=== PATIENT | male | born 1960 | race Caucasian/White ===

== ENCOUNTER 2022-05-12 13:26 | Outpatient (CLI) | payer OTHER, SELFPAY ==
[2022-05-12 14:40] LABS: INR 3.73 (0.91-1.10); Prothrombin Time 37.1 Seconds
== END 2022-05-12 13:27 | disposition home or self-care (01) ==
LOC: NFLDREF 13:27
PROVIDERS: PCP Family Medicine; Visit Provider Family Medicine
DX: I51.3 Intracardiac thrombosis, not elsewhere classified (principal); Z51.81 Encounter for therapeutic drug level monitoring; Z79.01 Long term (current) use of anticoagulants
CPT/HCPCS: 85610

== ENCOUNTER 2022-12-20 13:10 | Outpatient (CLI) | payer OTHER, SELFPAY ==
[2022-12-20 14:36] LABS: Albumin* 4.1 g/dL (3.3-5.0)
[2022-12-20 14:37] LABS: Chloride* 105 mmol/L (96-114); Potassium* 4.5 mmol/L (3.6-5.1); Sodium* 140 mmol/L (135-149)
[2022-12-20 14:39] LABS: Alkaline Phosphatase* 51 U/L (40-150); Aspartate Amino Transferase* 24 U/L (12-35); Bilirubin Total* 1.1 mg/dL (0.1-1.5); Blood Urea Nitrogen* 15 mg/dL (7-30); Carbon Dioxide* 29 mmol/L (20-32); Cholesterol* 171 mg/dL (90-199); Creatinine* 1.2 mg/dL (0.5-1.5); Estimated Glomerular Filt Rate 68 ml/min; Total Protein* 6.7 g/dL (6.0-8.3)
[2022-12-20 14:40] LABS: Alanine Aminotransferase* 20 U/L (4-50); Calcium* 9.5 mg/dL (8.4-10.6); Glucose* 116 mg/dL (60-115); HDL Cholesterol* 57 mg/dL (>=40); LDL Cholesterol Calculated 88 mg/dL (<100); Triglycerides* 129 mg/dL (40-149)
[2022-12-20 15:09] LABS: PSA Screen* 1.46 ng/mL (0.10-4.00)
== END 2022-12-20 13:11 | disposition home or self-care (01) ==
LOC: NFLDREF 13:10
PROVIDERS: PCP Family Medicine; Visit Provider Family Medicine
DX: Z00.00 Encounter for general adult medical examination without abnormal findings (principal); I42.9 Cardiomyopathy, unspecified; I10 Essential (primary) hypertension; Z79.01 Long term (current) use of anticoagulants; Z12.5 Encounter for screening for malignant neoplasm of prostate; Z13.6 Encounter for screening for cardiovascular disorders
CPT/HCPCS: 80053; 80061; 84153

== ENCOUNTER 2023-03-16 13:16 | Outpatient (CLI) | payer OTHER, SELFPAY | END 2023-03-16 13:17 | disposition home or self-care (01) | LOC: NFLDREF 03-18 09:25 | PROVIDERS: PCP Family Medicine; Referring Provider Family Medicine; Visit Provider Family Medicine | DX: Z79.01 Long term (current) use of anticoagulants (principal); I48.91 Unspecified atrial fibrillation; Z86.711 Personal history of pulmonary embolism | CPT/HCPCS: 85610 ==

== ENCOUNTER 2023-06-22 13:07 | Outpatient (CLI) | payer OTHER, SELFPAY | END 2023-06-22 13:08 | disposition home or self-care (01) | LOC: NFLDREF 06-23 12:41 | PROVIDERS: PCP Family Medicine; Referring Provider Family Medicine; Visit Provider Family Medicine | DX: Z79.01 Long term (current) use of anticoagulants (principal) | CPT/HCPCS: 85610 ==

== ENCOUNTER 2023-12-26 07:59 | Outpatient (CLI) | payer OTHER, SELFPAY ==
--- OUTSIDE RECORDS SUMMARY | 2023-12-26 11:59 | XMS_ITS | Encounter Summary ---
Author Name Unknown Organization [facility] Address [address] [place] [address] Care Team Providers Care Registered Travel Nurse Name Role Phone Unavailable Primary Care Provider Unavailabl e Reason for Visit * Reason Comments Med Refill Encounter Details Date Type Department Care Team (Late st Contact Info) Description 08/18/2023 Refill Department of Cardiovascular Diseases in [place], [place] [address] [address] Migue Montaño, DIVORCE MEDIATOR, C.N.P. [address] [address] Med Refill Social History Tobacco Use Types Packs/Day Years Used Date Smoking Tobacco: Never Smokeless Tobacco: Never Alcohol Use Standard Drinks/Week Comments Yes 0 (1 standard drink = 0.6 oz pur e alcohol) 1 drink per month Social Connection and Isolat ion Panel [NHANES] Answer Date Recorded In a typical week, how many times do you talk on the phone with family, friends, or neighbors? Once a week 06/18/2022 How often do you get togethe r with friends or relatives? More than three times a week 06/18/2022 How often do you attend chur ch or restoration services? 1 to 4 times per year 06/18/2022 Do you belong to any clubs o r organizations such as yazidi groups, unions, fraternal or athletic groups, or school groups? Patient declined 06/18/2022 How often do you attend meet ings of the clubs or organizations you belong to? Patient declined 06/18/2022 Are you , , di vorced, , never , or living with a partner? Never 06/18/2022 AUDIT-C Answer Date Recorded Q1: How often do you have a drink containing alc ohol? Monthly or less 06/18/2022 Q2: How many drinks containi ng alcohol do you have on a typical day when you are drinking? 1 or 2 06/18/2022 Q3: How often do you have si x or more drinks on one occasion? Never 06/18/2022 Overall Financial Resource Strain (CARDIA) Answe r Date Recorded How hard is it for you to pa y for the very basics like food, housing, medical care, and heating? Not hard at all 07/02/2021 [facility] [place] of Occupat ional Health - Occupational Stress Questionnaire Answer Date Recorded Do you feel stress - tense, restless, nervous, or anxious, or unable to sleep at night because your mind is troubled all the time - these days? Not at all 07/02/2021 Exercise Vital Sign Answer Date Recorde d On average, how many days pe r week do you engage in moderate to strenuous exercise (like a brisk walk)? 6 days 06/18/2022 On average, how many minutes do you engage in exercise at this level? 50 min 06/18/2022 Hunger Vital Sign Answer Date Recorded Within the past 12 months, y ou worried that your food would run out before you got the money to buy more. Never true 07/02/20 21 Within the past 12 months, t he food you bought just didn't last and you didn't have money to get more. Never true 07/02/2021 PRAPARE - Transportation Answer Date Re corded In the past 12 months, has l ack of transportation kept you from medical appointments or from getting medications? No 03/2022 In the past 12 months, has l ack of transportation kept you from meetings, work, or from getting things needed for daily living? No 06/18/2022 Housing Stability Vital Sign Answer Shlomo e Recorded In the last 12 months, was t here a time when you were not able to pay the mortgage or rent on time? No 06/18/2022 In the last 12 months, how many places have you lived? 1 06/18/2022 In the last 12 months, was t here a time when you did not have a steady place to sleep or slept in a usp (including now)? No 06/18/2022 Nutrition Answer Date Recorded Nutrition: EVOO Fat Source Yes 06/18 On average, how many serving s of fruits and vegetables do you eat per day (serving size is equal to 1 cup or approximately the size of a tennis ball)? 2-3 06/18/2022 Dental Answer Date Recorded Dental: Regular Dentist Yes 07/02/20 21 Employment Answer Date Recorded Employment status Retired 06/18/2022 Education Answer Date Recorded What is the highest level of school you have completed or the highest degree you have received? Professional school degree (e.g., MD, DDS, DVM, VESTA) 05/21/2019 Sex and Gender Information Value Date Recorded Sex Assigned at Male 08/26/2023 9:39 AM CDT Gender Identity Male 07/30/2022 7:04 AM CDT Sexual Orientation Choose not to disclose 2021 7:04 AM CDT documented as of this encounter Plan of Treatment Not on file documented as of this encounter Visit Diagnoses Not on filedocumented in this encounter
--- OUTSIDE RECORDS SUMMARY | 2023-12-26 11:59 | XMS_ITS | Encounter Summary ---
Author Name Unknown Organization [facility] Address [address] [place] [address] Care Team Providers Care Stereo Map Plotter Operator Name Role Phone Unavailable Primary Care Provider Unavailabl e Reason for Visit * Reason Comments Med Refill Encounter Details Date Type Department Care Team (Late st Contact Info) Description 11/21/2023 Refill Department of Cardiovascular Diseases in [place], [place] [address] [address] Migue Montaño, SAP ARCHITECT, C.N.P. [address] [address] Med Refill Social History Tobacco [...] often do you attend chur ch or gnosticism services? 1 to 4 times per year 06/18/2022 Do you belong to any clubs o r organizations such as yazdanism groups, unions, fraternal or athletic groups, or [...] and heating? Not hard at all 07/02/2021 [facility] [place] of Occupat ional Health - Occupational Stress [...] you got the money to buy more. Patient declined Within the past 12 months, t he food you bought just didn't last and you didn't have money to get more. Patient declined PRAPARE - Transportation Answer Date Re corded In the past 12 months, has l ack of transportation kept you from medical appointments or from getting medications? Patient declined 08/26/2023 In the past 12 months, has l ack of transportation kept you from meetings, work, or from getting things needed for daily living? Patient declined 08/26/2023 Nutrition Answer Date Recorded Nutrition: EVOO Fat Source Yes 06/18 On average, how many serving s of fruits and vegetables do you eat per day (serving size is equal to 1 cup or approximately the size of a tennis ball)? 2-3 06/18/2022 Dental Answer Date Recorded Dental: Regular Dentist Yes 07/02/20 21 Employment Answer Date Recorded Employment status Retired 06/18/2022 Housing Stability Answer Date Recorded What is your living situation today? Decline 08/26/2023 Education Answer Date Recorded What is the [...]
--- OUTSIDE RECORDS SUMMARY | 2023-12-26 11:59 | XMS_ITS | Encounter Summary ---
Author Name Unknown Organization [facility] Address [address] [place] [address] Care Team Providers Care Breading Machine Tender Name Role Phone Unavailable Primary Care Provider Unavailabl e Reason for Referral * Outpatient (Routine) - Authorized Specialty Diagnoses / Procedures Referred By Carolyn ureña Referred To Contact Cardiovascular Disease Migue Montaño APRN, C.N.P. [address] [place] [address] [facility] Region Referral ID Status Reason Start Date Expiration Date V isits Requested Visits Authorized [id number] Authorized 08/26/2023 08/25/2026 1 1 Reason for Visit * Reason Comments Follow-up * Outpatient (Routine) - Closed Specialty Diagnoses / Procedures Referred By Carolyn ureña Referred To Contact Cardiovascular Disease Migue Montaño APRN, C.N.P. [address], [place] [address] [facility] Region Referral ID Status Reason Start Date Expiration Date Visits Re quested Visits Authorized [id number] Closed 08/24/2022 08/23/2025 1 1 Encounter Details Date Type Department Care Team (Latest Contact Info) Description 08/26/2023 10:15 AM CDT Office Visit Department of Cardiovascular Diseases in [place], [place] [address] [place] [address] Migue Montaño APRN, C.N.P. [address], [place] [address] Atrial Fibrillation Permanent (HCC) (Primary Dx); Anticoagulant Therapy; Cardiomyopathy Dilated (HCC); Hypertensive Heart Disease With Heart Failure (HCC) Social History Tobacco Use Types Packs/Day Years Used Date Smoking Tobacco: Never Smokeless Tobacco: Never Tobacco Cessation:Counseling Given: Not Answered Alcohol Use Standard Drinks/Week Comments Yes 0 [...] 06/18/2022 How often do you attend chur or rastafari services? 1 to 4 times per year 06/18/2022 Do you belong to any clubs o r organizations such as spiritism groups, unions, fraBabble or athletic groups, or school groups? Patient [...] and heating? Not hard at all 07/02/2021 [facility] [place] of Occupat ional Health - Occupational Stress [...] Date Recorded Dental: Regular Dentist Yes 07/02/20 Employment Answer Date Recorded Employment status Retired [...] AM CDT documented as of this encounter Last Filed Vital Signs Vital Sign Reading Time Taken Comments Blood Pressure 135/88 08/26/2023 9:58 AM CDT Pulse 81 08/26/2023 9:58 AM CDT Temperature - - Respiratory Rate - - Oxygen Saturation - - Inhaled Oxygen Concentration - - Weight 111 kg (244 lb 14.9 oz) 08/26/2023 9:58 A M CDT Height - - Body Mass Index 31.77 05/23/2019 9:14 AM CDT documented in this encounter Progress Notes * Migue Montaño, ARACELI, C.N.P. - 08/26/2023 10:15 AM CDT SUBJECTIVE CHIEF COMPLAINT/REASON FOR VISIT Atrial fibrillation, cardiomyopathy HISTORY OF PRESENT ILLNESS Phani Purvis is seen today for an annual follow-up in the setting of atrial fibrillation and nonischemic cardiomyopathy. He has a personal history of heart failure with reduced ejection fraction and no coronary artery disease identified on a coronary angiogram May of 2018. He has been medically managed for his heart failure and is currently on 50 mg of carvedilol twice daily along with 50 mg of losartan, 20 mg of Lasix, and warfarin anticoagulation. He had been intolerant to spironolactone secondary to hyperkalemia in the past. Last year, he developed atrial fibrillation and underwent a successful cardioversion in July. When I saw him in follow-up in August he had been doing well post cardioversion and had noticed somewhat of an improvement in some exertional fatigue that has been present a few months prior to his follow-up visit with me prior to cardioversion. Today, he tells me that in December 2022 he was evaluated by his primary care physician and was felt to be in atrial fibrillation at the time of that appointment. Phani did not want to pursue additional rhythm management so rate control was continued. Today, Phani tells me that he continues to kevin rate control strategy and does not want to pursue additional evaluation and management (see below). He feels well and reports no new or concerning symptoms over the last year. He feels that he tolerates his medications well without side effects. He is not had any new problems with chest pains, exertional dyspnea, palpitations, PND, orthopnea, new weight gain, or new lower extremity edema. CURRENT MEDICATIONS Current Outpatient Medications: carvediloL (COREG) 25 mg tablet, TAKE 2 TABLETS (50 MG TOTAL) BY MOUTH 2 (TWO) TIMES A DAY WITH MEALS., Disp: 360 tablet, Rfl: 3 furosemide (LASIX) 20 mg tablet, Take 20 mg by mouth daily., Disp: , Rfl: losartan (COZAAR) 50 mg tablet, Take 1 tablet (50 mg total) by mouth daily., Disp: 90 tablet, Rfl: 3 warfarin (COUMADIN) 7.5 mg tablet, Take 7.5 mg Tuesday, 5 mg all other days., Disp: , Rfl: ALLERGIES Allergies Allergen Reactions Ragweed Pollen Cough MEDICAL HISTORY 1. Heart failure with reduced ejection fraction - Nonischemic cardiomyopathy. - Prior alcohol use; no illicit drug use; normal thyroid function test. - No CAD on coronary angiogram 05/29/2018 at [facility]. - CMR 05/2018 nonischemic cardiomyopathy; LVEF 24%, RVEF 33%; prominent increase in extracellular volume; mild mid myocardial gadolinium uptake in the anterobasilar septum - nonischemic with mild replacement fibrosis. 2. Left ventricular thrombus, detected by CMR 05/2018. 3. Hypertension. 4. Nonsustained VT on telemetry 05/2018. 5. Pulmonary embolization 05/2018. 6. Long-term anticoagulation, warfarin. Previously on Eliquis. - managed by primary care provider and anticoagulation clinic in [place]. 7. History of prior alcohol use. Quit heavy drinking approximately 2 years ago. 8. Borderline dilatation of the aorta. - 40 mm 12/2018. 9. Atrial fibrillation. Cardioversion July 2022. Reoccurrence of AFib by December 2022. Desires rate control. SH: The patient previously reported preference for last invasive therapy and DNR code status based on his primary provider's note from 06/07/2018. OBJECTIVE VITAL SIGNS BP 135/88 (BP Location: Right arm, Patient Position: Sitting, Cuff Size: Regular) Pulse 81 Wt 111 kg BMI 31.77 kg/m?? PHYSICAL EXAMINATION General: Well-appearing in no acute distress, alert and oriented x 3. Vessels: No JVD. Heart: Regular rate, irregular rhythm. Normal S1-S2. No murmurs. Lungs: Clear bilaterally. Abdomen: Nondistended. Extremities: No edema. DIAGNOSTICS Lab Results Component Value Date CREATININE 1.06 08/24/2023 BUN 15 05/31/2018 NA 141 08/24/2023 KSERUM 4.2 08/10/2022 KPLASMA 5.0 08/24/2023 CL 104 08/24/2023 CO2 26 05/31/2018 Lab Results Component Value Date WBC 10.2 (H) 06/16/2022 HGB 15.7 08/24/2023 HCT 49.2 (H) 06/16/2022 MCV 99.8 (H) 06/16/2022 PLT 198 06/16/2022 ECG 12 Lead Result Date: 08/24/2023 Atrial fibrillation with premature ventricular or aberrantly conducted complexes Low voltage QRS Low anterior forces Nonspecific T wave abnormality When compared with ECG of 24-AUG-2022 12:37, Atrial fibrillation has replaced Sinus rhythm Reviewed by RAUL Hernandez ASSESSMENT / PLAN #1 Atrial Fibrillation Permanent (HCC) #2 Anticoagulant Therapy With regard to his atrial fibrillation, I reviewed the available options regarding management. We talked about rate control along with rhythm management (cardioversion, anti arrhythmic therapy, ablation, pacemaker). He has an extremely strong desire to avoid any additional medication changes, hospit alizations, or procedures. His preference is to continue with rate control. He has not had any significant change with regard to symptoms over the last year and noticed no significant difference whenhe went back into atrial fibrillation around December of this year. We did discuss the potential for cardiac remodeling and valvular dysfunction over time with chronic atrial fibrillation. He indicates that if those conditions were to occur, he would also not pursue valvular surgery. After a nice discussion regarding his options as well as implementing his wishes, the plan is for continued medical management and the plan will be for rate control long-term. He continues to get hiswarfarin INR checked through the [facility] and reports his last INR was 2.5. #3 Cardiomyopathy Dilated (HCC) His last echocardiogram in May of 2022 revealed an LVEF of 38%. He was intolerant to spironolactone due to hyperkalemia and is otherwise on good doses of medical therapy. An SGLT2i could be considered as an add on but his preference is to not make any additional changes at this time. As he also ind icates he would not do anything differently with regard to any procedures and would like to avoid all hospitalizations in the future, we do not need to repeat an echocardiogram at this time but can reconsider that again in the future. #4 Hypertensive Heart Disease With Heart Failure (HCC) Blood pressure is borderline elevated today but he reports that it has been good at previous clinicchecks (unavailable to see [facility] results). I would recommend he continue to follow withhis primary care physician for any additional blood pressure management that may be needed and we should be targeting a goal blood pressure consistently less than 130/80. We are near that today. PLAN FOR FOLLOW-UP: Recommend follow-up by Cardiology in one year. documented in this encounter Plan of Treatment Scheduled Referrals Name Type Priority Associated Diagnoses Order Schedule Cardiovascular Disease office visit (clinic) General Outpatient Referral Routine Expected: 08/26/2024 (Approximate), Expires: 11/26/2024 documented as of this encounter Visit Diagnoses Diagnosis Atrial Fibrillation Permanent (HCC)- Primary Anticoagulant Therapy Cardiomyopathy Dilated (HCC) Hypertensive Heart Disease With Heart Failure (HCC) documented in this encounter
--- OUTSIDE RECORDS SUMMARY | 2023-12-26 11:59 | XMS_ITS ---
Author Name Unknown Organization [facility] Address [address] [place] [address] Care Team Providers Care Interactive Producer Name Role Phone Unavailable Unavailable Unavailable Surgery Details Not on file Complications Check Surgery Details section. Procedure Estimated Blood Loss Check Surgery Details section. Procedure Findings Check Surgery Details section. Procedure Specimens Taken Check Surgery Details section.
--- OUTSIDE RECORDS SUMMARY | 2023-12-26 11:59 | XMS_ITS | Encounter Summary ---
Author Name Unknown Organization [facility] Address [address] [place] [address] Care Team Providers Care Extraction Operator Name Role Phone Unavailable Primary Care Provider Unavailabl e Reason for Referral * Outpatient (Routine) - Closed Specialty Diagnoses / Procedures Referred By Contac t Referred To Contact Diagnoses Atrial Fibrillation Unspecified (HCC) Cardiomyopathy Dilated (HCC) Procedures ECG 12 Lead Migue Montaño APRN, C.N.P. [address] [address] [facility] Region Referral ID Status Reason Start Date Expiration Date Visits Re quested Visits Authorized [id number] Closed 08/24/2022 08/24/2023 1 1 Reason for Visit * Outpatient (Routine) - Closed Specialty Diagnoses / Procedures Referred By Contac t Referred To Contact Diagnoses Atrial Fibrillation Unspecified (HCC) Cardiomyopathy Dilated (HCC) Procedures ECG 12 Lead Migue Montaño APRN, C.N.P. [address] [address] [facility] Region Referral ID Status Reason Start Date Expiration Date Visits Re quested Visits Authorized [id number] Closed 08/24/2022 08/24/2023 1 1 Encounter Details Date Type Department Care Team (Latest Contact Info) Description 08/24/2023 7:39 AM CDT - 08/24/2023 11:59 PM CDT Hospital Encounter Department of Laboratory Medicine in [address] [address] Migue Montaño, ARACELI, C.N.P. [address], [place] [phone] Atrial Fibrillation Unspecified (HCC); Cardiomyopathy Dilated (HCC) Discharge Disposition: Home or Self Care Social History Tobacco Use Types Packs/Day Years [...] week 06/18/2022 How often do you attend [facility] or voodoo services? 1 to 4 times per year 06/18/2022 Do you belong to any clubs o r organizations such as denominational groups, unions, fraternal or athletic groups, or [...] and heating? Not hard at all 07/02/2021 [facility] [place] of Occupat ional Health - Occupational Stress [...] place to sleep or slept in a assisted (including now)? No 06/18/2022 Nutrition Answer Date [...] you have received? Professional school degree (e.g., , DDS, DVM, VESTA) 05/21/2019 Sex and Gender Information Value Date Recorded Sex Assigned at Male 08/26/2023 9:39 AM CDT Gender Identity Male 07/30/2022 7:04 AM CDT Sexual Orientation Choose not to disclose 2021 7:04 AM CDT documented as of this encounter Medications at Time of Discharge Medication Sig Dispensed Refills Start Date End Date carvediloL (COREG) 25 mg tablet TAKE 2 TABLETS (50 MG TOTAL) BY MOUTH 2 (TWO) TIMES A DAY WITH MEALS. 360 tablet 3 08/19/2023 furosemide (LASIX) 20 mg tablet Take 20 mg by mouth daily. 0 02/25/2020 warfarin (COUMADIN) 7.5 mg tablet Take 7.5 mg Tuesday, 5 mg all other days. 0 04/25/2020 losartan (COZAAR) 50 mg tablet Take 1 tablet (50 mg total) by mouth daily. 90 tablet 3 09/07/2022 11/22/2023 documented as of this encounter Plan of Treatment Not on file documented as of this encounter Procedures Procedure Name Priority Date/Time Associated Diagnosis Comments ECG Routine 08/24/2023 7:46 AM CDT Atrial Fibrillation Unspecified (HCC) Cardiomyopathy Dilated (HCC) documented in this encounter Results * ECG 12 Lead (08/24/2023 7:46 AM CDT) Ventricular Rate ECG/Min 65 BPM MUSE QRSD Interval 98 ms MUSE QT Interval 416 ms MUSE QTC Interval 432 ms MUSE R [place] -15 degrees MUSE T Wave [place] 54 degrees MUSE 08/24/2023 7:46 AM CDT 08/24/2023 7:56 AM CDT Impressions MUSE - 08/24/2023 7:56 AM CDT Atrial fibrillation with premature ventricular or aberrantly conducted complexes Low voltage QRS Low anterior forces Nonspecific T wave abnormality When compared with ECG of 24-AUG-2022 12:37, Atrial fibrillation has replaced Sinus rhythm Reviewed by RAUL Hernandez Narrative Procedure Note Jameson Beltran M.D. - 08/24/2023 IMPRESSION: Atrial fibrillation with premature ventricular or aberrantly conducted complexes Low voltage QRS Low anterior forces Nonspecific T wave abnormality When compared with ECG of 24-AUG-2022 12:37, Atrial fibrillation has replaced Sinus rhythm Reviewed by RAUL Hernandez Migue Montaño APRN, C.N.P. ECG ORDERABLE S MUSE NA documented in this encounter Visit Diagnoses Diagnosis Atrial Fibrillation Unspecified (HCC) Cardiomyopathy Dilated (HCC) documented in this encounter
--- OUTSIDE RECORDS SUMMARY | 2023-12-26 11:59 | XMS_ITS | Encounter Summary ---
Author Name Unknown Organization [facility] Address [address] [place] [address] Care Team Providers Care Hand Chain Maker Name Role Phone Unavailable Primary Care Provider Unavailabl e Encounter Details Date Type Department Care Team (Latest Contact Info) Description 08/24/2023 7:39 AM CDT - 08/24/2023 11:59 PM CDT Hospital Encounter Department of Laboratory Medicine in [place], [place] [address] [place] [phone] Migue Montaño, ARACELI, C.N.P. [address] [place] [phone] Atrial Fibrillation Unspecified (HCC); Cardiomyopathy Dilated (HCC) [...] often do you attend chur ch or hindu services? 1 to 4 times per year 06/18/2022 Do you belong to any clubs o r organizations such as catholic groups, unions, fraternal or athletic groups, or [...] and heating? Not hard at all 07/02/2021 [facility] [place] of Occupat ional Health - Occupational Stress [...] place to sleep or slept in a skilled nursing (including now)? No 06/18/2022 Nutrition Answer Date [...] Procedure Name Priority Date/Time Associated Diagnosis Comments ELECTROLYTE (CHEM 4) PANEL, S/P Routine 08/24/2023 7:59 AM CDT Atrial Fibrillation Unspecified (HCC) Cardiomyopathy Dilated (HCC) HEMOGLOBIN, B Routine 08/24/2023 7:59 AM CDT Atrial Fibrillation Unspecified (HCC) Cardiomyopathy Dilated (HCC) CREATININE WITH EGFR, S/P Routine 08/24/2023 7:59 AM CDT Atrial Fibrillation Unspecified (HCC) Cardiomyopathy Dilated (HCC) documented in this encounter Results * Hemoglobin (08/24/2023 7:59 AM CDT) Hemoglobin 15.7 13.2 - 16.6 g/dL 08/24/2023 8:48 AM CDT FB60 Blood (Blood, Venous) 08/24/2023 7:59 AM CDT 08/24/2023 7:59 AM CDT Migue Montaño APRN, C.N.P. LAB BLOOD ADD -ON Performing Organization Address City/[facility]/ZIP Co de Phone Number [facility] [address] [place] [address], [place] FB60 [facility] [place] [address] [place] [address] * Creatinine with Estimated GFR (08/24/2023 7:59 AM CDT) Creatinine 1.06 0.74 - 1.35 mg/dL 08/24/2023 2:47 PM CDT OWAT Estimated GFR (eGFR) 78 >=60 mL/min/BSA 08/24/2023 2:47 PM CDT OWAT Comment: Estimated GFR calculated using the 2020 CKD_EPI creatinine equation. Blood (Blood, Venous) 08/24/2023 7:59 AM CDT 08/24/2023 11:06 AM CDT Migue Montaño APRN, C.N.P. LAB BLOOD ADD -ON [facility] [address] [place] [address], [place] OWAT [facility] [place] [address] [place] [address] * Electrolyte (Chem 4) Panel (08/24/2023 7:59 AM CDT) Potassium, P 5.0 3.6 - 5.2 mmol/L 08/24/2023 2:47 PM CDT OWAT Sodium, P 141 135 - 145 mmol/L 08/24/2023 2:47 PM CDT OWAT Chloride, P 104 98 - 107 mmol/L 08/24/2023 2:47 PM CDT OWAT Bicarbonate, P 27 22 - 29 mmol/L 08/24/2023 2:47 PM CDT OWAT Anion Gap, P 10 7 - 15 08/24/2023 2:47 PM CDT OWAT Blood (Blood, Venous) 08/24/2023 7:59 AM CDT 08/24/2023 11:06 AM CDT Migue Montaño APRN C.N.P. LAB BLOOD ADD -ON [facility] [address] [place] [address], [facility] OWAT [facility] [place] [address], [place] [address] documented in this encounter Visit Diagnoses Diagnosis Atrial Fibrillation Unspecified (HCC) Cardiomyopathy Dilated (HCC) documented in this encounter
--- OUTSIDE RECORDS SUMMARY | 2023-12-26 11:59 | XMS_ITS | Referral Summary ---
Author Name Unknown Organization [facility] Address [address] [place] [address] Care Team Providers Care Diesel Service Journeyman Name Role Phone Unavailable Primary Care Provider Unavailabl e Source Comments Patient records contain information from all sites at [facility]. For routine questions regarding patient records, call [phone] during business hours, M-F 8:00 AM - 5:00 PM Central Time. Record requests for emergency care only can be directed to [phone] at any time.[facility] Encounters Date Type Department Care Team Description 11/21/2023 Refill Department of Cardiovascular Diseases in [place], [place] [address] [place] [phone] Migue Montaño, ARACELI, C.N.P. Med Refill from Last 3 Months Allergies Active Allergy Reactions Criticality Noted Date Comments Ragweed Pollen Cough 06/28/2018 Medications Medication Sig Dispensed Refills Start Date End Date Status warfarin (COUMADIN) 7.5 mg tablet Take 7.5 mg Tuesday, 5 mg all other days. 0 04/25/2020 Active furosemide (LASIX) 20 mg tablet Take 20 mg by mouth daily. 0 02/25/2020 Active carvediloL (COREG) 25 mg tablet TAKE 2 TABLETS (50 MG TOTAL) BY MOUTH 2 (TWO) TIMES A DAY WITH MEALS. 360 tablet 3 08/19/2023 Active losartan (COZAAR) 50 mg tablet TAKE ONE TABLET (50MG) BY MOUTH DAILY 90 tablet 3 11/22/2023 Active Active Problems Patient Care Coordination No te Formatting of this note migh t be different from the original. Spouse: no Children: no Work: no [place] on file for: sister in law Dominic Cell #: [phone] [place] on file for: brothportia Reeves Cell #: [phone] Problem Noted Date Diagnosed Date Thoracic Aortic Aneurysm Without Rupture Unspeci fied 07/06/2021 Embolus Pulmonary Personal History 05/26/2020 Cardiomyopathy Dilated 06/28/2018 Thrombus Ventricular Left 06/28/2018 Anticoagulant Therapy 06/28/2018 Hypertensive Heart Disease With Heart Failure Immunizations Name Administration Dates Next Due Influenza, Injectable, Quadrivalent 09/25/2018 SARS-COV-2 (COVID-19) - MODERNA(Discontinued) ,01/22/2021 Social History Tobacco Use Types Packs/Day Years [...] How often do you attend chur or sabianism services? 1 to 4 times per year 06/18/2022 Do you belong to any clubs o r organizations such as judaism groups, unions, fraternal or athletic groups, or [...] and heating? Not hard at all 07/02/2021 [facility] of Occupat ional Health - Occupational Stress [...] have received? Professional school degree (e.g., , [employer], DVM, VESTA) 05/21/2019 Sex and Gender Information Value Date Recorded Sex Assigned at Male 08/26/2023 9:39 AM CDT Gender Identity Male 07/30/2022 7:04 AM CDT Sexual Orientation Choose not to disclose 2021 7:04 AM CDT Last Filed Vital Signs Vital Sign Reading Time Taken Comments Blood Pressure 135/88 08/26/2023 9:58 AM CDT Pulse 81 08/26/2023 9:58 AM CDT Temperature 36.7 ??C (98.1 ??F) 05/23/2019 9:14 AM CD T Respiratory Rate - - Oxygen Saturation 96% 08/24/2022 11:22 AM CDT Inhaled Oxygen Concentration - - Weight 111 kg (244 lb 14.9 oz) 08/26/2023 9:58 A M CDT Height 187 cm (6' 1.62) 05/23/2019 9:14 AM CDT Body Mass Index 31.77 05/23/2019 9:14 AM CDT Plan of Treatment Not on file
--- OUTSIDE RECORDS SUMMARY | 2023-12-26 11:59 | XMS_ITS | Clinical Summary ---
Author Name Unknown Organization [facility] Address [address] [place] [address] Care Team Providers Care Reading Tutor Name Role Phone Unavailable Primary Care Provider Unavailabl e Source Comments Patient records contain information from all sites at [facility]. For routine questions regarding patient records, call [phone] during business hours, M-F 8:00 AM - 5:00 PM Central Time. Record requests for emergency care only can be directed to [phone] at any time.[facility] Allergies Active Allergy Reactions Criticality Noted Date [...] for: sister in law Dominic Cell #: [phone] [place] on file for: brother Leandro Cell #: [phone] Problem Noted Date Diagnosed Date Thoracic Aortic Aneurysm Without Rupture Unspeci fied 07/06/2021 Embolus Pulmonary Personal History 05/26/2020 Cardiomyopathy Dilated 06/28/2018 Thrombus Ventricular Left 06/28/2018 Anticoagulant Therapy 06/28/2018 Hypertensive Heart Disease With Heart Failure Encounters Date Type Department Care Team Description 11/21/2023 Refill Department of Cardiovascular Diseases in [place], [place] [address] [place] [address] Migue Montaño, ARACELI, C.N.P. Med Refill from Last 3 Months Immunizations Name Administration Dates Next Due Influenza, [...] often do you attend chur ch or orthodox services? 1 to 4 times per year 06/18/2022 Do you belong to any clubs o r organizations such as shinto groups, unions, fraternal or athletic groups, or [...] and heating? Not hard at all 07/02/2021 [facility] of Occupat ional Health - Occupational Stress [...] 05/23/2019 9:14 AM CDT Plan of Treatment Health Maintenance Due Date Last Done Comments CT Colonography 1958 Cologuard 1960 Colonoscopy 1958 Colorectal Cancer Screening 1958 FIT 1958 HIV Screening 1958 Hepatitis C Screening 1958 Pneumococcal vaccine (65+ ye ars) (1 of 2 - PCV) 1964 Fasting Glucose for Diabetes Screening 05/31/2021 05/31/2018, 05/30/2018, 05/29/2018, Additional history exists Depression Screening (Annual PHQ-2) 11/14/2023 Fall Risk Screen (Annual) 2023 Creatinine Level (Kidney Fun ction Test) 08/24/2024 08/24/2023, 06/16/2022, 05/31/2018, Additional history exists Potassium Level 08/24/2024 08/24/2023, 11/0 07/2022, 09/07/2022, Additional history exists Sodium Level 08/24/2024 08/24/2023, 08/0 01/2022, 05/31/2018, Additional history exists Office Visit for Blood Press ure Check / Re-check 08/26/2024 08/26/2023 DTaP,Tdap,and Td Vaccines (2 - Td or Tdap) 05/08/2029 05/08/2019 Zoster Vaccines Completed 12/02/2021, 09/24/2021 Influenza Vaccine Completed 07/28/2023, , 07/28/2021, Additional history exists COVID-19 Vaccine Completed 09/08/2023, 01/2022, 03/02/2022, Additional history exists
--- OUTSIDE RECORDS SUMMARY | 2023-12-26 11:59 | XMS_ITS | Clinical Summary ---
Author Name Unknown Organization [facility] Address [place], [place] [address] Care Team Providers Care Human Resources Psychologist Name Role Phone Nurses, Advanced Heart Failure Unavailable + Migue Lenz MD Primary Care Provider [phone] Allergies No known active allergies Medications Medication Sig Dispensed Refills Start Date End Date Status furosemide (LASIX) 40 mg tabletIndications:A cute systolic CHF (congestive heart failure) (HC) Take 1 tablet by mouth every morning. 30 tablet 3 06/01/2018 Active Additional Information Patient taking differently: 20 mgOral Q AM, Reported on 08/10/2022 spironolactone (ALDACTONE) 25 mg tabletIndications:A cute systolic CHF (congestive heart failure) (HC) Take 1 tablet by mouth every morning. 30 tablet 3 06/01/2018 Active losartan (COZAAR) 50 mg tablet Take 1 tablet by mouth 2 times daily. 60 tablet 3 05/31/2018 Active carvediloL (COREG) 25 mg tablet Take 1 Tablet by mouth once daily. 0 09/07/2021 Active warfarin (COUMADIN) 5 mg tablet TAKE ONE TABLET (5MG)BY MOUTH ON TUESDAY/TUESDAY/ IDAY TAKE ONE AND ONE-HALF TABLETS (7.5MG) THE REST OF THE WEEK 0 05/13/2022 Active warfarin (COUMADIN) 7.5 mg tablet TAKE ONE TABLET (7.5MG) BY MOUTH ON TUESDAY,TUE,,WED ,FRI,SAT 0 02/22/2022 Active Active Problems Problem Noted Date Diagnosed Date Nonischemic cardiomyopathy 05/29/2018 Acute systolic CHF (congestive heart failure) Pulmonary embolism 05/27/2018 BROWN (dyspnea on exertion) 05/27/2018 Family History Medical History Relation Name Comments Pulmonary embolism Other niece's c ousin of PE at a young age Coronary artery disease Paternal Grandfather of [place] at age 69 Relation Name Status Comments Other Paternal Grandfather Social History Tobacco Use Types Packs/Day Years Used Date Smoking Tobacco: Never Smokeless Tobacco: Never Alcohol Use Standard Drinks/Week Comments Yes 0 (1 standard drink = 0.6 oz pur e alcohol) Sex and Gender Information Value Date Recorded Sex Assigned at Not on file Gender Identity Not on file Sexual Orientation Not on file Obstetrics History Last Filed Vital Signs Vital Sign Reading Time Taken Comments Blood Pressure 106/78 08/10/2022 2:15 PM CDT Pulse 70 08/10/2022 2:15 PM CDT Temperature 36.8 ??C (98.3 ??F) 08/10/2022 1:28 PM CD T Respiratory Rate 16 08/10/2022 2:15 PM CDT Oxygen Saturation 98% 08/10/2022 2:15 PM CDT Inhaled Oxygen Concentration - - Weight 108.4 kg (239 lb) 08/10/2022 12:11 PM CDT Height 185.4 cm (6' 0.99) 05/29/2018 9:00 PM CD T Body Mass Index 31.54 05/29/2018 9:00 PM CDT Plan of Treatment Health Maintenance Due Date Last Done Comments Tdap 1969 Depression screening for age 12+ 1970 HIV for age 15-65 1973 BMI (ht and wt on same day) for age 18+ 1976 Hepatitis C screening for age 18-79 1976 Tetanus booster 1978 Colonoscopy through age 75 2003 Zoster (shingles) series for age 50+ (1 of 2) 2008 Lipids for age 45-75 05/28/2023 05/28/2018 COVID-19 vaccine series (2022- season) 2023 03/02/2022, 09/29/2021, 02/23/2021, Additional history exists Influenza for age 50-64 07/15/2023 Pneumococcal series for age 6-64 Aged Out No longer eligible based on patient's age to complete this topic Advance Directives Latest Code Status on File Code Status Date Activated Date Inactivated Comments Full Code 08/10/2022 12:28 PM 08/10/2022 4:17 PM Question Answer Comments Code Status Discussion: Not Discussed Code Status History Code Status Date Activated Date Inactivated Comments Full Code 08/10/2022 11:53 AM 08/10/2022 12:28 PM Question Answer Comments Code Status Discussion: Not Discussed DNR 05/31/2018 6:43 PM 05/31/2018 11:51 PM Question Answer Comments Code Status Discussion: Discussed Full Code 05/27/2018 5:34 PM 05/31/2018 6:43 PM Care Teams Human Resources Psychologist Relationship Specialty Start Date End Date Migue Lenz MD [address] [place] [address] PCP - General Family Practice 08/10/22 Nurses, Advanced Heart Failure [address] [place] [address] Jig Bore Operator Advanced Heart Failure/Transplant Card 05/29/18
== END 2023-12-26 08:00 | disposition home or self-care (01) ==
LOC: NFLDREF 11:57
PROVIDERS: PCP Family Medicine; Referring Provider Family Medicine; Visit Provider Family Medicine
DX: I42.9 Cardiomyopathy, unspecified (principal); Z12.5 Encounter for screening for malignant neoplasm of prostate
CPT/HCPCS: 80053; 80061; G0103

== ENCOUNTER 2023-12-28 09:43 | Outpatient (CLI) | payer OTHER, SELFPAY ==
--- OUTSIDE RECORDS SUMMARY | 2023-12-28 09:50 | XMS_ITS | Clinical Summary ---
Author Name Unknown Organization [facility] Address [address] [place] [address] Care Team Providers Care Kitchen Helper Name Role Phone Unavailable Primary Care Provider Unavailabl e Source Comments Patient records contain information from all sites at [facility]. For routine questions regarding patient records, call [phone] during business hours, M-F 8:00 AM - 5:00 PM Central Time. Record requests for emergency care only can be directed to [phone] at any time.[facility] Allergies Active Allergy Reactions Criticality Noted [...] for: sister in law Dominic Cell #: [phone] [place] on file for: brother Leandro Cell #: [phone] Problem Noted Date Diagnosed Date Thoracic Aortic Aneurysm Without Rupture Unspeci fied 07/06/2021 Embolus Pulmonary Personal History 05/26/2020 Cardiomyopathy Dilated 06/28/2018 Thrombus Ventricular Left 06/28/2018 Anticoagulant Therapy 06/28/2018 Hypertensive Heart Disease With Heart Failure Encounters Date Type Department Care Team Description 11/21/2023 Refill Department of Cardiovascular Diseases in [place], [place] [address] [place] [address] Migue Montaño, ARACELI, C.N.P. Med [...] often do you attend chur ch or druze services? 1 to 4 times per year [...] and heating? Not hard at all 07/02/2021 [facility] of Occupat ional Health - [...]
--- OUTSIDE RECORDS SUMMARY | 2023-12-28 09:50 | XMS_ITS | Referral Summary ---
Author Name Unknown Organization [facility] Address [address] [place] [address] Care Team Providers Care Cath Lab Radiology Technician Name Role Phone Unavailable Primary Care Provider Unavailabl e Source Comments Patient records contain information from all sites at [facility]. For routine questions regarding patient records, call [phone] during business hours, M-F 8:00 AM - 5:00 PM Central Time. Record requests for emergency care only can be directed to [phone] at any time.[facility] Encounters Date Type Department Care Team Description 11/21/2023 Refill Department of Cardiovascular Diseases in [place], [place] [address] [place] [phone] Migue Montaño, ARACELI, C.N.P. Med Refill from [...] for: sister in law Dominic Cell #: [phone] [place] on file for: brothportia Reeves Cell #: [phone] Problem Noted Date Diagnosed Date Thoracic Aortic [...] How often do you attend chur or christian services? 1 to 4 times per year 06/18/2022 Do you belong to any clubs o r organizations such as restorationist groups, unions, fraternal or athletic groups, or [...] and heating? Not hard at all 07/02/2021 [facility] [place] of Occupat ional Health - Occupational Stress [...]
--- OUTSIDE RECORDS SUMMARY | 2023-12-28 09:51 | XMS_ITS | Clinical Summary ---
Author Name Unknown Organization [facility] Address [place], [place] [address] Care Team Providers Care Deicer Repairer Name Role Phone Nurses, Advanced Heart Failure Unavailable + Migue Lenz MD Primary Care Provider [phone] Allergies No known active allergies Medications Medication [...] age Coronary artery disease Paternal Grandfather of [place] at age 69 Relation Name Status Comments [...] age 18+ 1976 Hepatitis C screening for ag e 18-79 1976 Tetanus booster 1978 Colonoscopy through age 75 2003 Zoster (shingles) series for age 50+ (1 of 2) 2008 Lipids for age 45-75 05/28/2023 05/28/2018 COVID-19 vaccine series (2022- season) 2023 03/02/2022, 09/29/2021, 02/23/2021, Additional history exists Influenza for age 65+ 2023 Pneumococcal series for age 65+ (1 of 1 - PCV) 2023 Advance Directives Latest Code Status on File [...] 5:34 PM 05/31/2018 6:43 PM Care Teams Deicer Repairer Relationship Specialty Start Date End Date Migue Lenz MD [address] [place] [address] PCP - General Family Practice 08/10/22 Nurses, Advanced Heart Failure [address], [place] [address] Library Serials Assistant Advanced Heart Failure/Transplant Card 05/29/18
--- OUTSIDE RECORDS SUMMARY | 2023-12-28 09:51 | XMS_ITS | Encounter Summary ---
Author Name Unknown Organization [facility] Address [address] [place] [address] Care Team Providers Care Custodian Manager Name Role Phone Unavailable Primary Care Provider Unavailabl e Reason for Visit * Reason Comments Med Refill Encounter Details Date Type Department Care Team (Late st Contact Info) Description 11/21/2023 Refill Department of Cardiovascular Diseases in [place], [place] [address] [address] Migue Montaño, CNA, C.N.P. [address] [address] Med Refill Social History Tobacco [...] often do you attend chur ch or tenriism services? 1 to 4 times per year 06/18/2022 Do you belong to any clubs o r organizations such as methodist groups, unions, fraternal or athletic groups, or [...] and heating? Not hard at all 07/02/2021 [facility] [place] of Occupat ional Health - Occupational Stress [...]
--- OUTSIDE RECORDS SUMMARY | 2023-12-28 09:51 | XMS_ITS ---
Author Name Unknown Organization [facility] Address [address] [place] [address] Care Team Providers Care Packing Room Worker Name Role Phone Unavailable Unavailable Unavailable Surgery Details Not on file Complications Check Surgery Details section. Procedure Estimated Blood Loss Check Surgery Details section. Procedure Findings Check Surgery Details section. Procedure Specimens Taken Check Surgery Details section.
--- OUTSIDE RECORDS SUMMARY | 2023-12-28 09:51 | XMS_ITS | Encounter Summary ---
Author Name Unknown Organization [facility] Address [address] [place] [address] Care Team Providers Care Grain Roaster Name Role Phone Unavailable Primary Care Provider Unavailabl e Reason for Referral * Outpatient (Routine) - Authorized Specialty Diagnoses / Procedures Referred By Carolyn ureña Referred To Contact Cardiovascular Disease Migue Montaño APRN, C.N.P. [address] [place] [address] [facility] Region Referral ID Status Reason Start Date Expiration Date V isits Requested Visits Authorized [id number] Authorized 08/26/2023 08/25/2026 1 1 Reason for Visit * Reason Comments Follow-up * Outpatient (Routine) - Closed Specialty Diagnoses / Procedures Referred By Carolyn ureña Referred To Contact Cardiovascular Disease Migue Montaño APRN, C.N.P. [address], [place] [address] [facility] Region Referral ID Status Reason Start Date Expiration Date Visits Re quested Visits Authorized [id number] Closed 08/24/2022 08/23/2025 1 1 Encounter Details Date Type Department Care Team (Latest Contact Info) Description 08/26/2023 10:15 AM CDT Office Visit Department of Cardiovascular Diseases in [place], [place] [address] [place] [address] Migue Montaño APRN, C.N.P. [address], [place] [address] Atrial Fibrillation Permanent (HCC) (Primary [...] How often do you attend chur or anabaptist services? 1 to 4 times per year 06/18/2022 Do you belong to any clubs o r organizations such as zoroastrian groups, unions, [email or web address] or athletic groups, or school groups? Patient [...] and heating? Not hard at all 07/02/2021 [facility] [place] of Occupat ional Health - Occupational Stress [...] primary care provider and anticoagulation clinic in [place]. 7. History of prior alcohol use. Quit [...] to get hiswarfarin INR checked through the [facility] and reports his last INR was [...] good at previous clinicchecks (unavailable to see [facility] results). I would recommend he continue [...]
--- OUTSIDE RECORDS SUMMARY | 2023-12-28 09:51 | XMS_ITS | Encounter Summary ---
Author Name Unknown Organization [facility] Address [address] [place] [address] Care Team Providers Care Life Support Technician Name Role Phone Unavailable Primary Care Provider Unavailabl e Reason for Visit * Reason Comments Med Refill Encounter Details Date Type Department Care Team (Late st Contact Info) Description 08/18/2023 Refill Department of Cardiovascular Diseases in [place], [place] [address] [address] Migue Montaño, FINISH MIXER, C.N.P. [address] [address] Med Refill Social History Tobacco [...] often do you attend chur ch or protestant services? 1 to 4 times per year 06/18/2022 Do you belong to any clubs o r organizations such as confucianist groups, unions, fraternal or athletic groups, or [...] and heating? Not hard at all 07/02/2021 [facility] [place] of Occupat ional Health - Occupational Stress [...] place to sleep or slept in a penitentiary (including now)? No 06/18/2022 Nutrition Answer Date [...]
--- OUTSIDE RECORDS SUMMARY | 2023-12-28 09:51 | XMS_ITS | Encounter Summary ---
Author Name Unknown Organization [facility] Address [address] [place] [address] Care Team Providers Care Plate Mill Mill Hand Name Role Phone Unavailable Primary Care Provider Unavailabl e Reason for Referral * Outpatient (Routine) - Closed Specialty Diagnoses / Procedures Referred By Contac t Referred To Contact Diagnoses Atrial Fibrillation Unspecified (HCC) Cardiomyopathy Dilated (HCC) Procedures ECG 12 Lead Migue Montaño APRN, C.N.P. [address] [address] [facility] Region Referral ID Status Reason Start Date Expiration Date Visits Re quested Visits Authorized [id number] Closed 08/24/2022 08/24/2023 1 1 Reason for Visit * Outpatient (Routine) - Closed Specialty Diagnoses / Procedures Referred By Contac t Referred To Contact Diagnoses Atrial Fibrillation Unspecified (HCC) Cardiomyopathy Dilated (HCC) Procedures ECG 12 Lead Migue Montaño APRN, C.N.P. [address] [address] [facility] Region Referral ID Status Reason Start Date Expiration Date Visits Re quested Visits Authorized [id number] Closed 08/24/2022 08/24/2023 1 1 Encounter Details Date Type Department Care Team (Latest Contact Info) Description 08/24/2023 7:39 AM CDT - 08/24/2023 11:59 PM CDT Hospital Encounter Department of Laboratory Medicine in [address] [address] Migue Montaño, ARACELI, C.N.P. [address] [phone] Atrial Fibrillation Unspecified (HCC); Cardiomyopathy Dilated (HCC) [...] week 06/18/2022 How often do you attend [facility] services? 1 to 4 times per year 06/18/2022 Do you belong to any clubs o r organizations such as jewish groups, unions, fraternal or athletic groups, or [...] and heating? Not hard at all 07/02/2021 [facility] [place] of Occupat ional Health - Occupational Stress [...] place to sleep or slept in a nursing home (including now)? No 06/18/2022 Nutrition Answer Date [...] MUSE QTC Interval 432 ms MUSE R [place] -15 degrees MUSE T Wave [place] 54 degrees MUSE 08/24/2023 7:46 AM CDT [...] replaced Sinus rhythm Reviewed by RAUL Hernandez Mgiue Montaño APRN, C.N.P. ECG ORDERABLE S MUSE NA documented in this encounter Visit Diagnoses Diagnosis Atrial Fibrillation Unspecified (HCC) Cardiomyopathy Dilated (HCC) documented in this encounter
--- OUTSIDE RECORDS SUMMARY | 2023-12-28 09:51 | XMS_ITS | Encounter Summary ---
Author Name Unknown Organization [facility] Address [address] [place] [address] Care Team Providers Care Hopper Feeder Name Role Phone Unavailable Primary Care Provider Unavailabl e Encounter Details Date Type Department Care Team (Latest Contact Info) Description 08/24/2023 7:39 AM CDT - 08/24/2023 11:59 PM CDT Hospital Encounter Department of Laboratory Medicine in [place], [place] [address] [place] [phone] Migue Montaño, ARACELI, C.N.P. [address] [place] [phone] Atrial Fibrillation Unspecified (HCC); Cardiomyopathy Dilated (HCC) [...] often do you attend chur ch or hoahaoism services? 1 to 4 times per year 06/18/2022 Do you belong to any clubs o r organizations such as uatsdin groups, unions, fraternal or athletic groups, or [...] and heating? Not hard at all 07/02/2021 [facility] [place] of Occupat ional Health - Occupational Stress [...] place to sleep or slept in a [facility] (including now)? No 06/18/2022 Nutrition Answer Date [...] LAB BLOOD ADD -ON Performing Organization Address City/[facility]/ZIP Co de Phone Number [facility] [address] [place] [address], [place] [id number] [facility] in [place] [address] [place] [address] * Creatinine with Estimated GFR (08/24/2023 7:59 AM CDT) Creatinine 1.06 0.74 - 1.35 mg/dL 08/24/2023 2:47 PM CDT OWAT Estimated GFR (eGFR) 78 >=60 mL/min/BSA 08/24/2023 2:47 PM CDT OWAT Comment: Estimated GFR calculated using the 2020 CKD_EPI creatinine equation. Blood (Blood, Venous) 08/24/2023 7:59 AM CDT 08/24/2023 11:06 AM CDT Migue Montaño APRN, C.N.P. LAB BLOOD ADD -ON [facility] [address] [place] [address], [place] OW[place] [facility] in [place] [address] [place] [address] * Electrolyte (Chem 4) Panel (08/24/2023 7:59 [...] Montaño APRN C.N.P. LAB BLOOD ADD -ON [facility] [address] [place] [address], [facility] OWAT [facility] in [place] [address] [address] documented in this encounter Visit Diagnoses Diagnosis Atrial Fibrillation Unspecified (HCC) Cardiomyopathy Dilated (HCC) documented in this encounter
== END 2023-12-28 09:44 | disposition home or self-care (01) ==
PROVIDERS: PCP Family Medicine; Visit Provider Family Medicine
DX: R73.01 Impaired fasting glucose (principal)
CPT/HCPCS: 82947

== ENCOUNTER 2024-10-17 13:10 | Outpatient (CLI) | payer MEDICARE, SELFPAY ==
--- OUTSIDE RECORDS SUMMARY | 2024-10-21 13:10 | XMS_ITS | Clinical Summary ---
Author Organization [facility] Address [address] [place] [address] Care Team Providers Care Ui Software Engineer Name Role Phone Unavailable Primary Care Provider Unavailabl e Source Comments Patient records contain information from all sites at [facility]. For routine questions regarding patient records, call [phone] during business hours, M-F 8:00 AM - 5:00 PM Central Time. Record requests for emergency care only can be directed to [phone] at any time.[facility] Allergies Active Allergy Reactions Criticality Noted Date Comments Ragweed Pollen Cough 06/28/2018 Medications * This document contains information received from the source organization and may not represent a complete record from that organization. warfarin (COUMADIN) 7.5 mg tablet Take 7.5 mg Tuesday, 5 mg all other days. 0 Active furosemide (LASIX) 20 mg tablet Take 20 mg by mouth daily. 0 Active losartan (COZAAR) 50 mg tablet TAKE ONE TABLET (50MG) BY MOUTH DAILY 90 tablet 3 4 Active carvediloL (Coreg) 25 mg tablet TAKE 2 TABLETS (50 MG TOTAL) BY MOUTH 2 (TWO) TIMES A DAY WITH MEALS. 360 tablet 3 4 Active warfarin (Jantoven) 5 mg tablet 7.5 Tuesday, Tuesday 4 Active Active Problems Patient Care Coordination No te Formatting of this note migh t be different from the original. Spouse: no Children: no Work: no [place] on file for: sister in law Dominic Cell #: [phone] [place] on file for: brother Leandro Cell #: [phone] Problem Noted Date Diagnosed Date Atrial Fibrillation Permanent 08/29/2024 Thoracic Aortic Aneurysm Without Rupture Unspeci fied 07/06/2021 Embolus Pulmonary Personal History 05/26/2020 Cardiomyopathy Dilated 06/28/2018 Thrombus Ventricular Left 06/28/2018 Anticoagulant Therapy 06/28/2018 Hypertensive Heart Disease With Heart Failure Encounters Date Type Department Care Team Description 08/29/2024 2:30 PM CDT Office Visit Department of Cardiovascular Diseases in [place], [place] [address] [place] [phone] Migue Montaño APRN, C.N.P. Cardiomyopathy Dilated (HCC) (Primary Dx); Hypertensive Heart Disease With Heart Failure (HCC); Anticoagulant Therapy; Atrial Fibrillation Permanent (HCC) 08/17/2024 Refill Department of Cardiovascular Diseases in [place], [place] [address] [phone] Migue Montaño APRN, C.N.P. Med Refill from Last 3 Months Immunizations Name Administration Dates Next Due Influenza, Injectable, Quadrivalent 09/25/2018 SARS-COV-2 (COVID-19) - MODERNA(Discontinued) ,01/22/2021 Social History Tobacco Use Types Packs/Day Years Used Date Smoking Tobacco: Never Passive Smoke Exposure: Never Smokeless Tobacco: Never Tobacco Cessation:Counseling Given: [...] often do you attend chur ch or worship services? 1 to 4 times per year 06/18/2022 Do you belong to any clubs o r organizations such as nondenominational groups, unions, fraternal or athletic groups, or [...] you are drinking? 1 or 2 06/18/2022 Frequency of Binge Drinking Not on file 03/2022 Overall Financial Resource Strain (CARDIA) Answe r Date Recorded How hard is it for you to pa y for the very basics like food, housing, medical care, and heating? Not hard at all 07/02/2021 [facility] [place] of Occupat ional Health - Occupational Stress [...] Patient declined 08/26/2023 Nutrition Answer Date Recorded On average, how many serving s of [...] Assigned at Male 08/26/2023 9:39 AM CDT Legal Sex Male 8:50 AM CDT Gender Identity Male 07/30/2022 7:04 AM CDT Sexual Orientation Choose not to disclose 2021 7:04 AM CDT Last Filed Vital Signs Vital Sign Reading Time Taken Comments Blood Pressure 115/79 08/29/2024 2:37 PM CDT Pulse 83 08/29/2024 2:37 PM CDT Temperature 36.7 C (98.1 F) 05/23/2019 9:14 AM CDT Respiratory Rate - - Oxygen Saturation 96% 08/24/2022 11:22 AM CDT Inhaled Oxygen Concentration - - Weight 103 kg (226 lb 3.1 oz) 08/29/2024 2:37 PM CDT Height 186.5 cm (6' 1.43) 08/29/2024 2:37 PM CD T Body Mass Index 29.5 08/29/2024 2:37 PM CDT Plan of Treatment Health Maintenance Due Date Last Done Comments CT Colonography 1958 Cologuard 1960 Colonoscopy 1960 Colorectal Cancer Screening 1958 FIT 1958 HIV Screening 1960 Hepatitis C Screening 1960 Fasting Glucose for Diabetes Screening 05/31/2021 05/31/2018, 05/30/2018, 05/29/2018, Additional history exists Depression Screening (Annual PHQ-2) 11/14/2023 Fall Risk Screen (Annual) 2023 Creatinine Level (Kidney Function Test) 08/24/2024 08/24/2023, 06/16/2022, 05/31/2018, Additional history exists Potassium Level 08/24/2024 08/24/2023, 11/0 07/2022, 09/07/2022, Additional history exists Sodium Level 08/24/2024 08/24/2023, 08/0 01/2022, 05/31/2018, Additional history exists Office Visit for Blood Pressure Check / Re-check 08/29/2025 08/29/2024 DTaP,Tdap,and Td Vaccines (2 - Td or Tdap) 05/08/2029 05/08/2019 Zoster Vaccines Completed 12/02/2021, 09/24/2021 Pneumococcal vaccine (65+ years) Completed 12/28/2023 RSV vaccine - (32-36 weeks) or 60+ years Completed 12/28/2023 COVID-19 Vaccine Completed 07/19/2024, , 08/16/2022, Additional history exists Influenza Vaccine Completed 07/19/2024, , 08/04/2022, Additional history exists IPV Vaccines Aged Out No longer eligi ble based on patient's age to complete this topic Procedures Procedure Name Priority Date/Time Associated Diagnosis Comments ELECTROLYTE (CHEM 4) PANEL, S/P Routine 08/24/2023 7:59 AM CDT Atrial Fibrillation Unspecified (HCC) Cardiomyopathy Dilated (HCC) CREATININE WITH EGFR, S/P Routine 08/24/2023 7:59 AM CDT Atrial Fibrillation Unspecified (HCC) Cardiomyopathy Dilated (HCC) from Last 3 Months or Most Recently Relevant to Health Maintenance Results * Electrolyte (Chem 4) Panel (08/24/2023 7:59 [...] 7:59 AM CDT 08/24/2023 11:06 AM CDT us Migue Montaño APRN, C.N.P. LAB BLOOD ADD-ON Lina l Result Performing Organization Address City/[facility]/ZIP Co de Phone Number [facility] [address] [place] [address], [place] OWAT [facility] [place] [address] [place] [address] * Creatinine with Estimated GFR (08/24/2023 7:59 AM CDT) Creatinine 1.06 0.74 - 1.35 mg/dL 08/24/2023 2:47 PM CDT OWAT Estimated GFR (eGFR) 78 >=60 mL/min/BSA 08/24/2023 2:47 PM CDT OWAT Comment: Estimated GFR calculated using the 2020 CKD_EPI creatinine equation. Blood (Blood, Venous) 08/24/2023 7:59 AM CDT 08/24/2023 11:06 AM CDT us Migue Montaño APRN, C.N.P. LAB BLOOD ADD-ON Lina l Result Performing Organization Address City/[facility] Co de Phone Number [facility] [address] [place] [address], [place] OWAT [facility] in [place] [address], [place] [address] from Last 3 Months or Most Recently Relevant to Health Maintenance Insurance ARE
--- OUTSIDE RECORDS SUMMARY | 2024-10-21 13:10 | XMS_ITS ---
Author Organization [facility] Address [address] [place] [address] Care Team Providers Care Telephone Technician Name Role Phone Unavailable Unavailable Unavailable Surgery Details Not on file Complications Check Surgery Details section. Procedure Estimated Blood Loss Check Surgery Details section. Procedure Findings Check Surgery Details section. Procedure Specimens Taken Check Surgery Details section.
--- OUTSIDE RECORDS SUMMARY | 2024-10-21 13:10 | XMS_ITS | Clinical Summary ---
Author Organization [facility] Address [place], [place] [address] Care Team Providers Care Car Repairer Pullman Name Role Phone Nurses, Advanced Heart Failure Unavailable + Migue Lenz MD Primary Care Provider [phone] Allergies No known active allergies Medications furosemide (LASIX) 40 mg tabletIndicatio ns:Acute systolic CHF (congestive heart failure) (HC) Take 1 tablet by mouth every morning. 30 tablet 3 05/31/2018 9:30 PM CDT 8 Active Additional Information Patient taking differently: 20 mgOral Q AM, Reported on 08/10/2022 spironolactone (ALDACTONE) 25 mg tabletIndicatio ns:Acute systolic CHF (congestive heart failure) (HC) Take 1 tablet by mouth every morning. 30 tablet 3 05/31/2018 9:30 PM CDT 8 Active losartan (COZAAR) 50 mg tablet Take 1 tablet by mouth 2 times daily. 60 tablet 3 05/31/2018 9:30 PM CDT 8 Active carvediloL (COREG) 25 mg tablet Take 1 Tablet by mouth once daily. 1 Active warfarin (COUMADIN) 5 mg tablet TAKE ONE TABLET (5MG)BY MOUTH ON TUESDAY/TUESDAY /TUESDAY TAKE ONE AND ONE-HALF TABLETS (7.5MG) THE REST OF THE WEEK 2 Active warfarin (COUMADIN) 7.5 mg tablet TAKE ONE TABLET (7.5MG) BY MOUTH ON TUESDAY,MON,TU, WEDS,FRI,SAT 2 Active Active Problems Problem Noted Date Diagnosed Date Nonischemic cardiomyopathy 05/29/2018 Acute systolic CHF (congestive heart failure) Pulmonary embolism 05/27/2018 BROWN (dyspnea on exertion) 05/27/2018 Family History Medical History Relation Name Comments Pulmonary embolism Other niece's c ousin of PE at a young age Coronary artery disease Paternal Grandfather of [place] at age 69 Relation Name Status Comments Other Paternal Grandfather Social History Tobacco Use Types Packs/Day Years Used Date Smoking Tobacco: Never Smokeless Tobacco: Never Alcohol Use Standard Drinks/Week Comments Yes 0 (1 standard drink = 0.6 oz pur e alcohol) Sex and Gender Information Value Date Recorded Sex Assigned at Not on file Legal Sex Male 2:46 PM CDT Gender Identity Not on file Sexual Orientation Not on file Obstetrics History Last Filed Vital Signs Vital Sign Reading Time Taken Comments Blood Pressure 106/78 08/10/2022 2:15 PM CDT Pulse 70 08/10/2022 2:15 PM CDT Temperature 36.8 C (98.3 F) 08/10/2022 1:28 PM CDT Respiratory Rate 16 08/10/2022 2:15 PM CDT [...] 2008 Lipids for age 45-75 05/28/2023 05/28/2018 Pneumococcal series for age 65+ (1 of 1 - PCV) 2023 COVID-19 vaccine series ( season) 2024 03/02/2022, 09/29/2021, 02/23/2021, Additional history exists Influenza for age 65+ 07/15/2024 Procedures Procedure Name Priority Date/Time Associated Diagnosis Comments LIPID PANEL Early AM 05/28/2018 6:13 AM CDT from Last 3 Months or Most Recently Relevant to Health Maintenance Results * (ABNORMAL) LIPID PANEL (05/28/2018 6:13 AM CDT) [facility] CHOLESTEROL,TOTAL 102 100 - 199 mg/dL 05/28/2018 7:14 AM CDT [facility] TRIGLYCERIDES 58 <150 mg/dL 05/28/2018 7:14 AM CDT [facility] HDL CHOLESTEROL 40(L) >40 mg/dL 8 7:14 AM CDT [facility] NON-HDL CHOLESTEROL 62 <145 mg/dl 05/28/2018 7:14 AM CDT [facility] CHOL/HDL RATIO 2.55 <4.50 05/28/2018 7:14 AM CDT [facility] LDL CHOLESTEROL 50 <=130 mg/dL 05/28/2018 7:14 AM CDT [facility] PROVIDER ORDERED STATUS RANDOM 05/28/2018 7:14 AM CDT [facility] Blood BLOOD SPECIMEN / Unknown Venipuncture / Unknown 05/28/2018 6:13 AM CDT 05/28/2018 6:50 AM CDT us Kami Varghese MD CHEMISTRY Final Result [facility] [address] [place] [address], [place] from Last 3 Months or Most Recently Relevant to Health Maintenance Insurance [employer] [place] [id number] Advance Directives * Full Code (Latest Code Status on File) Date Activated Date Inactivated Comments 08/10/2022 12:28 PM 08/10/2022 4:17 PM Question Answer Comments Code Status Discussion: Not Discussed * Full Code Date Activated Date Inactivated Comments 08/10/2022 11:53 AM 08/10/2022 12:28 PM Question Answer Comments Code Status Discussion: Not Discussed * DNR Date Activated Date Inactivated Comments 05/31/2018 6:43 PM 05/31/2018 11:51 PM Question Answer Comments Code Status Discussion: Discussed * Full Code Date Activated Date Inactivated Comments 05/27/2018 5:34 PM 05/31/2018 6:43 PM Care Teams Car Repairer Pullman Relationship Specialty Start Date End Date Migue Lenz MD [address] [place] [address] PCP - General Family Practice 08/10/22 Nurses, Advanced Heart Failure [address] [place] [address] Machine Tester Advanced Heart Failure/Transplant Card 05/29/18
--- OUTSIDE RECORDS SUMMARY | 2024-10-21 13:10 | XMS_ITS | Referral Summary ---
Author Organization [facility] Address [address] [place] [address] Care Team Providers Care Floor Covering Contractor Name Role Phone Unavailable Primary Care Provider Unavailabl e Source Comments Patient records contain information from all sites at [facility]. For routine questions regarding patient records, call [phone] during business hours, M-F 8:00 AM - 5:00 PM Central Time. Record requests for emergency care only can be directed to [phone] at any time.[facility] Encounters Date Type Department Care Team Description 08/29/2024 2:30 PM CDT Office Visit Department of Cardiovascular Diseases in [place], [place] [address] [phone] Migue Montaño APRN, C.N.P. Cardiomyopathy Dilated (HCC) (Primary Dx); Hypertensive Heart Disease With Heart Failure (HCC); Anticoagulant Therapy; Atrial Fibrillation Permanent (HCC) 08/17/2024 Refill Department of Cardiovascular Diseases in [address] [phone] Migue Montaño APRN, C.N.P. Med Refill from [...] for: sister in law Dominic Cell #: [phone] [place] on file for: brother Leandro Cell #: [phone] Problem Noted Date Diagnosed Date Atrial Fibrillation [...] often do you attend chur ch or yazidi services? 1 to 4 times per year 06/18/2022 Do you belong to any clubs o r organizations such as druze groups, unions, fraternal or athletic groups, or [...] and heating? Not hard at all 07/02/2021 [facility] [place] of Occupat ional Health - Occupational Stress [...] 08/29/2024 2:37 PM CDT Plan of Treatment Not on file Procedures Procedure Name Priority Date/Time Associated Diagnosis [...] ADD-ON Lina l Result Performing Organization Address City/[facility] Co de Phone Number [facility] [address], [place] [address], [place] OWAT [facility] [place] [address], [place] [address] * Creatinine with Estimated GFR (08/24/2023 7:59 AM CDT) Creatinine 1.06 0.74 - 1.35 mg/dL 08/24/2023 2:47 PM CDT OWAT Estimated GFR (eGFR) 78 >=60 mL/min/BSA 08/24/2023 2:47 PM CDT OWAT Comment: Estimated GFR calculated using the 2020 CKD_EPI creatinine equation. Blood (Blood, Venous) 08/24/2023 7:59 AM CDT 08/24/2023 11:06 AM CDT us Migue Montaño APRN, C.N.P. LAB BLOOD ADD-ON Lina l Result [facility] [address], [place] [address], [place] OW[place] [facility] [place] [address] [place] [id number] from Last 3 Months or Most Recently Relevant to Health Maintenance Insurance [facility]
--- OUTSIDE RECORDS SUMMARY | 2024-10-21 13:10 | XMS_ITS | Encounter Summary ---
Author Organization [facility] Address [address] [place] [address] Care Team Providers Care Manager Fixed Income Name Role Phone Unavailable Primary Care Provider Unavailabl e Reason for Referral * Outpatient (Routine) - Authorized Specialty Diagnoses / Procedures Referred By Carolyn ureña Referred To Contact Cardiovascular Disease Migue Montaño APRN, C.N.P. [address] [phone] Phone: tel: fax: [facility] Referral ID Status Reason Start Date Expiration Date V isits Requested Visits Authorized [id number] Authorized 08/29/2024 02/28/2026 1 1 Reason for Visit * Reason Comments Follow-up * Outpatient (Routine) - Closed Specialty Diagnoses / Procedures Referred By Carolyn ureña Referred To Contact Cardiovascular Disease Migue Montaño APRN, C.N.P. [address], [place] [address] Phone: tel: fax: [facility] Referral ID Status Reason Start Date Expiration Date Visits Re quested Visits Authorized [id number] Closed 08/26/2023 08/25/2026 1 1 Encounter Details Date Type Department Care Team (Latest Contact Info) Description 08/29/2024 2:30 PM CDT Office Visit Department of Cardiovascular Diseases in [place], [place] [address] [place] [phone] Migue Montaño APRN, C.N.P. [address] [phone] Cardiomyopathy Dilated (HCC) (Primary Dx); Hypertensive Heart Disease With Heart Failure (HCC); Anticoagulant Therapy; Atrial Fibrillation Permanent (HCC) Social History Tobacco Use Types Packs/Day [...] week 06/18/2022 How often do you attend [facility] or orthodox services? 1 to 4 times per year 06/18/2022 Do you belong to any clubs o r organizations such as [employer]aritan groups, unions, fraternal or athletic groups, or [...] heating? Not hard at all 07/02/2021 [facility] [place] [facility] Occupat ional Health - Occupational Stress [...] Pulse 83 08/29/2024 2:37 PM CDT Temperature - - Respiratory Rate - - Oxygen Saturation - - Inhaled Oxygen Concentration - - Weight 103 kg (226 lb 3.1 oz) 08/29/2024 2:37 PM CDT Height 186.5 cm (6' 1.43) 08/29/2024 2:37 PM CD T Body Mass Index 29.5 08/29/2024 2:37 PM CDT documented in this encounter Progress Notes * Migue Montaño, ARACELI, C.N.P. - 08/29/2024 2:30 PM CDT SUBJECTIVE CHIEF COMPLAINT/REASON FOR VISIT Follow-up HISTORY OF PRESENT ILLNESS Phani Purvis is seen today for an annual follow-up visit. He has a personal history of nonischemic cardiomyopathy and atrial fibrillation. I last saw him in August of 2023 and at that time he was feeling well. Today, he tells me that he has continued to feel well and reports no new or concerning cardiopulmonary symptoms. He tells me that since our last visit together he has been trying to exercise more and eat better. He primarily has been changing his portion sizes. With this he has lost about 20 lb. He has been walking for exercise about 1 hour per day and he covers about 3 to 3.5 miles during this time frame. He is not experiencing any chest pains and denies any shortness of breath, PND, orthopnea, new weight gains, or new lower extremity edema. He has a personal history heart failure with reduced ejection fraction/nonischemic cardiomyopathy and he underwent a coronary angiogram in May of 2018 revealing no concerning coronary artery disease. He has been medically managed for his heart failure on 50 mg of carvedilol twice daily, losartan 50 mg daily and furosemide as needed. He was intolerant to spironolactone secondary to hyperkalemia even on low doses in the past. He was uninterested in making medication changes last year though we discussed the possibility of an SGLT2i. He has desired to avoid frequent tests and/or hospitalizations. He continues to follow with primary care out of [place] through the [facility] and seeRosalina. Migue Lenz. He tells me that his last visit was this spring. He also has a personal history of atrial fibrillation. This was initially diagnosed in the summer. In July of 2022 he underwent a successful cardioversion. By December of 2022 his atrialfibrillation returned and at that time he had desired no further trials of rhythm management in preferred a rate control strategy. He is already anticoagulated due to history of pulmonary embolism [id number]. He was previously on apixaban, now on warfarin. He has his INR managed through the [facility]. CURRENT MEDICATIONS Current Outpatient Medications: carvediloL (Coreg) 25 mg tablet, TAKE 2 TABLETS (50 MG TOTAL) BY MOUTH 2 (TWO) TIMES A DAY WITH MEALS., Disp: 360 tablet, Rfl: 3 furosemide (LASIX) 20 mg tablet, Take 20 mg by mouth daily., Disp: , Rfl: losartan (COZAAR) 50 mg tablet, TAKE ONE TABLET (50MG) BY MOUTH DAILY, Disp: 90 tablet, Rfl: 3 warfarin (Jantoven) 5 mg tablet, 7.5 Tuesday, Tuesday, Disp: , Rfl: warfarin (COUMADIN) 7.5 mg tablet, Take 7.5 [...] primary care provider and anticoagulation clinic in [place]. 7. History of prior alcohol use. Quit [...] note from 06/07/2018. OBJECTIVE VITAL SIGNS BP 115/79 (BP Location: Right arm, Patient Position: Sitting, Cuff Size: Regular) Pulse 83 Ht 186.5 cm Wt 103 kg BMI 29.50 kg/m?? PHYSICAL EXAMINATION General: Well-appearing in no acute distress, alert and oriented x 3. Vessels: No JVD. Heart: Regular rate, irregular rhythm. Normal S1-S2. No murmurs. Lungs: Clear bilaterally. Abdomen: Nondistended. Extremities: No edema. DIAGNOSTICS No recent labs available to be reviewed, currently being seen through [facility] ASSESSMENT / PLAN #1 Atrial Fibrillation Permanent (HCC) #2 Anticoagulant Therapy Patient desires to continue with a rate and anticoagulation strategy. He is continuing to demonstrate rate control on physical exam. He remains on warfarin anticoagulation that is managed through [facility]. #3 Cardiomyopathy Dilated (HCC) His last echocardiogram in May of 2022 revealed an LVEF of 38%. He was intolerant to spironolactone due to hyperkalemia and is otherwise on good doses of medical therapy. We previously discussed an SGLT2i but this may be cost prohibitive and he is not necessarily inclined to make additional changes today. We discussed the possibility of repeating an echocardiogram but have deferred until next year. I encouraged him to continue with his regular exercise regimen which is excellent. #4 Hypertensive Heart Disease With Heart Failure (HCC) His blood pressure is well controlled today. I would recommend a target blood pressure less than 130/80 consistently. PLAN FOR FOLLOW-UP: Recommend follow-up by Cardiology in one year. documented in this encounter Plan of Treatment Scheduled Orders Name Type Priority Associated Diagnoses Orde r Schedule Creatinine with Estimated GFR Lab Routine Cardiomyopathy Dilated (HCC) Hypertensive Heart Disease With Heart Failure (HCC) Anticoagulant Therapy Atrial Fibrillation Permanent (HCC) Expected: 08/29/2025, Expires: 11/29/2025 Potassium Lab Routine Cardiomyopathy Dilated (HCC) Hypertensive Heart Disease With Heart Failure (HCC) Anticoagulant Therapy Atrial Fibrillation Permanent (HCC) Expected: 08/29/2025, Expires: 11/29/2025 Sodium Lab Routine Cardiomyopathy Dilated (HCC) Hypertensive Heart Disease With Heart Failure (HCC) Anticoagulant Therapy Atrial Fibrillation Permanent (HCC) Expected: 08/29/2025, Expires: 11/29/2025 Hemoglobin Lab Routine Cardiomyopathy Dilated (HCC) Hypertensive Heart Disease With Heart Failure (HCC) Anticoagulant Therapy Atrial Fibrillation Permanent (HCC) Expected: 08/29/2025, Expires: 08/29/2025 Scheduled Referrals Name Type Priority Associated Diagnoses Order Schedule Cardiovascular Disease office visit (clinic) Outpatient Referral Routine Expect ed: 08/29/2025 (Approximate), Expires: 11/29/2025 documented as of this encounter Visit Diagnoses Diagnosis Cardiomyopathy Dilated (HCC)- Primary Hypertensive Heart Disease With Heart Failure (HCC) Anticoagulant Therapy Atrial Fibrillation Permanent (HCC) documented in this encounter
--- OUTSIDE RECORDS SUMMARY | 2024-10-21 13:10 | XMS_ITS | Encounter Summary ---
Author Organization [facility] Address [address] [place] [address] Care Team Providers Care Mattress Stuffer Name Role Phone Unavailable Primary Care Provider Unavailabl e Reason for Visit * Reason Comments Med Refill Encounter Details Date Type Department Care Team (Late st Contact Info) Description 08/17/2024 Refill Department of Cardiovascular Diseases in [place], [place] [address] [phone] Migue Montaño, PRODUCT DEVELOPMENT DIRECTOR, C.N.P. [address] [phone] Med Refill Social History Tobacco [...] often do you attend chur ch or baptist services? 1 to 4 times per year 06/18/2022 Do you belong to any clubs o r organizations such as amish groups, unions, fraternal or athletic groups, or [...] and heating? Not hard at all 07/02/2021 [facility] Occupat ional Health - Occupational [...] have received? Professional school degree (e.g., MD, YAELS, DVM, VESTA) 05/21/2019 Sex and Gender [...]
== END 2024-10-17 13:11 | disposition home or self-care (01) ==
LOC: NFLDREF 10-21 13:08
PROVIDERS: PCP Family Medicine; Referring Provider Family Medicine; Visit Provider Family Medicine
DX: Z79.01 Long term (current) use of anticoagulants (principal)
CPT/HCPCS: 85610

== ENCOUNTER 2024-10-24 09:26 | Outpatient (CLI) | payer MEDICARE, SELFPAY | END 2024-10-24 09:27 | disposition home or self-care (01) | LOC: NFLDREF 10-25 11:47 | PROVIDERS: PCP Family Medicine; Referring Provider Family Medicine; Visit Provider Family Medicine | DX: Z79.01 Long term (current) use of anticoagulants (principal); Z86.711 Personal history of pulmonary embolism | CPT/HCPCS: 85610 ==

== ENCOUNTER 2024-11-08 09:16 | Outpatient (CLI) | payer MEDICARE, SELFPAY | END 2024-11-08 09:17 | disposition home or self-care (01) | LOC: NFLDREF 11-09 08:26 | PROVIDERS: PCP Family Medicine; Referring Provider Family Medicine; Visit Provider Family Medicine | DX: Z79.01 Long term (current) use of anticoagulants (principal) | CPT/HCPCS: 85610 ==

== ENCOUNTER 2025-01-04 09:10 | Outpatient (CLI) | payer MEDICARE, SELFPAY | END 2025-01-04 09:11 | disposition home or self-care (01) | LOC: NFLDREF 01-08 07:27 | PROVIDERS: PCP Family Medicine; Referring Provider Family Medicine; Visit Provider Family Medicine | DX: E78.5 Hyperlipidemia, unspecified (principal); Z12.5 Encounter for screening for malignant neoplasm of prostate | CPT/HCPCS: 80053; 80061; G0103 ==

== ENCOUNTER 2025-01-18 14:00 | Outpatient (CLI) | payer MEDICARE, SELFPAY | END 2025-01-18 14:01 | disposition home or self-care (01) | LOC: NFLDREF 01-22 06:05 | PROVIDERS: PCP Family Medicine; Referring Provider Family Medicine; Visit Provider Family Medicine | DX: Z79.01 Long term (current) use of anticoagulants (principal); I48.91 Unspecified atrial fibrillation | CPT/HCPCS: 85610 ==